=== PATIENT | male | born 1960 | race Caucasian/White ===

== ENCOUNTER 2018-12-20 15:37 | Observation (INO) | payer BC ==
[2018-12-19 11:33] VITALS: BMI 33.4
[~2018-12-20 15:37] MED LIST: Lidocaine 1% PF 5 ML VIAL ONE; PROPOFOL 200 MG/20 ML VIAL ONE
[2018-12-20] MEDS ORDERED: CEFAZOLIN 2 GM/50 ML BAG ONE (16:10)
[2018-12-20] MEDS ORDERED: Midazolam HCl 2 mg/2 ml Vial ONE (16:55)
[2018-12-20] MEDS ORDERED: Fentanyl 100 MCG/2 ML VIAL ONE ×3 (16:56→23:54)
[2018-12-20 17:16] LABS: #Basophils 0.1 thou/uL (0.0-0.2); #Lymphocytes 1.9 thou/uL (1.20-3.40); #Monocytes 0.8 thou/uL (0.11-0.59); %Basophils 0.9 % (0.0-1.0); %Eosinophils 0.8 % (0.0-10.0); %Lymphocytes 32.8 % (21.0-51.0); %Monocytes 13.9 % (0.0-10.0); %Neutrophils 51.7 % (42.0-75.0); Hemoglobin 14.2 g/dL (14.0-18.0); Mean Corpuscular HGB CONC 34.7 g/dL (32.0-36.0); Mean Corpuscular Hemoglobin 32.8 pg (27.0-31.0); Mean Corpuscular Volume 94.5 fL (78.0-98.0); Mean Platelet Volume 7.8 fL (7.4-10.4); Platelet Count 247 thou/uL (130-400); RBC Distribution Width 11.3 % (11.5-14.5); Red Blood Cell (RBC) Count 4.33 mill/uL (4.70-6.10); White Blood Cell (WBC) Count 5.8 thou/uL (4.8-10.8)
[2018-12-20] MEDS ORDERED: Bupivacaine PF 0.5% 30 ML VIAL ONE ×2 (19:03→20:55)
[2018-12-20] MEDS ORDERED: Sodium Chloride 0.9% 10 ML ONE (19:03)
[2018-12-20] MEDS ORDERED: Bacitracin Zinc Ointment 30 gm TUBE ONE (19:03)
[2018-12-20] MEDS ORDERED: Ropivacaine 0.2% 550 ML 550 ML NERVE BLCK SCH (21:06)
[2018-12-20] MEDS ORDERED: Ondansetron PF 4 MG/2 ML Vial IVP PRN (21:06)
[2018-12-20] MEDS ORDERED: Promethazine HCl 25 MG/ML VIAL IM PRN ×2 (21:06→23:44)
[2018-12-20] MEDS ORDERED: Zolpidem Tartrate 5 MG TAB PO PRN (21:06)
[2018-12-20] MEDS ORDERED: Ondansetron HCl/PF 4 MG/2 ML Vial IVP PRN (23:44)
[2018-12-20] MEDS ORDERED: Promethazine HCl 25 MG/ML VIAL SLOW IVP PRN (23:44)
[2018-12-20] MEDS ORDERED: Communication Order-Pharmacy FS SCH (23:45)
[2018-12-20] MEDS ORDERED: Ketorolac Tromethamine 30 MG/ML VIAL ONE (23:50)
[2018-12-20] MEDS ORDERED: Acetaminophen 325 MG TAB PO PRN (23:56)
[2018-12-20] MEDS ORDERED: traMADol HCl 50 MG TAB PO PRN (23:56)
[2018-12-20] MEDS ORDERED: Morphine 4 MG/ML VIAL SLOW IVP PRN (23:56)
[2018-12-20] MEDS ORDERED: Ondansetron PF 4 MG/2 ML Vial IV PRN (23:56)
[2018-12-21] MEDS ORDERED: Meperidine HCl/PF 25 MG/ML VIAL IM PRN (00:04)
[2018-12-21] MEDS ORDERED: TETANUS AND DIPHTHERIA TOX/PF 0.5 ML DISP.SYRIN IM SCH (01:00)
[2018-12-21] MEDS: Ketorolac Tromethamine 30 MG/ML VIAL IVP SCH ×2 (01:16→05:24)
[2018-12-21] MEDS: HYDROcodone/Acetaminophen 5/325 mg Tablet PO PRN ×3 (01:23→10:36)
--- NOTE | 2018-12-21 08:46 | RAD ---
RIGHT HAND 2 VIEWS: Date: 12/20/18 HISTORY: Intraoperative films. FINDINGS: This is a series of C-arm films which show operative changes at the metacarpophalangeal joint of the middle finger related to partial resection of metacarpal head. IMPRESSION: Postoperative changes of the hand. POS: CHRIS
[2018-12-21] MEDS ORDERED: Losartan 25 MG TAB PO SCH (09:00)
[2018-12-21] MEDS ORDERED: Ubidecarenone 50 MG CAP PO SCH (09:00)
[2018-12-21] MEDS ORDERED: Hydrochlorothiazide 25 MG TAB PO SCH (09:00)
[2018-12-21] MEDS ORDERED: Fish Oil 1,000 MG CAP PO SCH (09:00)
[2018-12-21] MEDS ORDERED: Multivit, Therapeutic 1 TAB PO SCH (09:00)
[2018-12-21] MEDS ORDERED: Nebivolol HCl 5 MG TAB PO SCH (09:00)
[2018-12-21] MEDS ORDERED: Aspirin 81 mg Enteric Coated Tablet PO SCH (09:00)
[2018-12-21] MEDS ORDERED: Vancomycin HCl 1 GM in Premix Bag 1 BAG IVPB SCH (10:00)
[2018-12-21 10:16] VITALS: BP 118/70; TEMP 98.8
--- NOTE | 2018-12-21 16:05 | DIS ---
DATE OF ADMISSION: 12/20/2018 DATE OF DISCHARGE: 12/21/2018 ADMISSION DIAGNOSIS: Pain after joint replacement, upper extremity. POSTOPERATIVE DIAGNOSIS: Pain after joint replacement, upper extremity. HOSPITAL COURSE: The patient was admitted after he had an indwelling block with postoperative pain and lives more than 30 minutes away, so he was admitted overnight. Approximately 12 hours after procedure, the pain began to subside, so he was prepared for discharge. Examination at the time of discharge showed normal color, refill, gross motion, and his splint dressing intact. Now, his indwelling block line is without abnormality and appears to be at least partially successful. DISCHARGE DIAGNOSIS: Pain after joint replacement, upper extremity. POSTOPERATIVE RECOMMENDATIONS: He will now be discharged on regular diet. He has been given [place] for pain when it occurs, Toradol for pain take as directed and then antibiotic Bactrim for 5-day course. He will follow up with us in 2 weeks for dressing change and early therapy. Suture removal will be between 3 and 4 weeks from the procedure. Job ID: [id number]
--- NOTE | 2018-12-21 16:37 | OP ---
DATE OF PROCEDURE: 12/20/2018 PREOPERATIVE DIAGNOSES: 1. Right severe osteoarthritis, metacarpophalangeal joint, middle finger. 2. 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 FINDINGS: Very large posterior osteophytes on both sides of the metacarpophalangeal joint and 85% loss of articular surface on the metacarpal head, approximately 65% loss of articular surface on the base of proximal phalanx. PROCEDURE PERFORMED: 1. Joint release, capsulotomy, right metacarpophalangeal joint with osteophyte excisions. 2. Right metacarpophalangeal joint [employer]umen FORMTEK #5 silastic metacarpophalangeal joint middle finger arthroplasty (metacarpophalangeal arthroplasty). ESTIMATED BLOOD LOSS: 10 mL. TOURNIQUET TIME: 50 minutes. FINDINGS: Severe osteoarthritis described above. INDICATIONS: Failed conservative treatment with severe amount of osteoarthritis and joint loss of motion. DESCRIPTION OF PROCEDURE: After successful general endotracheal anesthesia,limb was prepped and draped. The patient had a block, which was starting to take effect, so we gave him 20 mL of 0.5% Marcaine prior to initiating the incision. We exsanguinated the limb, inflated the tourniquet on the right upper extremity to 250 mmHg pressure. We made a zigzag incision where the incision did not cross the metacarpophalangeal joint dorsally, but on the radial side. We carried this through the skin and subcutaneous tissue. We released the retinaculum on the radial side in its midportion throughout its entire length to allow for us to retract the extensor mechanism. We then made a capsular release first. We it from both sides of the joint and then to allow motion as a partial capsulotomy and then removed the capsule in the midline to visualize the osteophytes. Here, we saw the 85% loss of articular surface on the metacarpal head and 65% loss on the base of proximal phalanx (inebriated bone). We then made an almost 7 mm thick cut parallel to the joint surface with a sagittal saw on the metacarpal head and then a 2 mm cut parallel to the joint surface on the base of proximal phalanx. The collaterals were now and had a Jignesh stitch with a 4-0 Prolene placed for later placement back into the metacarpal head shaft junction. We then made a posterior cut on the metacarpal head, removed all the osteophytes to create a semi box effect and then removed all the osteophytes on the palmar aspect of the proximal phalanx to increase flexion as well. I irrigated the area and begin successive reamers first with the starter broach on x-ray to be sure we were in the central portion of the interosseous canal in the frontal-sagittal plane. Once confirmed this, we then began progressive and sequential broaching with the Tykli instruments. A 5 broach had excellent fit and we placed the 5 implant in. There was stability and we were able to get the long finger left within a mm of the opposite side. We then irrigated the area, found a 5 prosthesis put in appropriate position, checked stability and before doing the final prosthesis, we had placed drill holes in the radial ulnar aspect of the metacarpal box cut and then once the prosthesis was in, we tied this in 30 degrees of flexion for stability and it was very stable. We then closed the extensor mechanism with a small amount of capsular remnant underneath with interrupted on the ends and running in the middle 4-0 Prolene. There was excellent stability to 90 degrees of flexion passively of the extensor mechanism times when checked today. The tourniquet had been deflated. Hemostasis was obtained. We then closed the skin with some interrupted 4-0 Monocryl and 4-0 nylon interrupted mattress pattern for epidermal closure. The patient left the operating room without evidence of anesthetic complication. Job ID: [id number]
[2018-12-21] MEDS ORDERED: Fenofibrate Nanocrystallized 145 MG TAB PO SCH (21:00)
[2018-12-21] MEDS ORDERED: Pravastatin Sodium 20 MG TAB PO SCH (21:00)
[2018-12-22] MEDS ORDERED: Ketorolac Tromethamine 30 MG/ML VIAL IVP PRN (06:00)
== END 2018-12-21 11:02 | disposition home or self-care (01) ==
LOC: SDC 15:37 → SURG A 23:56
PROVIDERS: ADMIT Orthopaedic Surgery Hand Surgery; ATTEND Orthopaedic Surgery Hand Surgery
PROC: 0RNU0ZZ Release Right Metacarpophalangeal Joint, Open Approach (ICD-10-PCS; principal; 2018-12-20)
PROC: 0RRU0JZ Replacement of Right Metacarpophalangeal Joint with Synthetic Substitute, Open Approach (ICD-10-PCS; 2018-12-20)
DX: M19.041 Primary osteoarthritis, right hand (principal); M24.541 Contracture, right hand; I10 Essential (primary) hypertension; E78.5 Hyperlipidemia, unspecified; Z96.641 Presence of right artificial hip joint; Z90.49 Acquired absence of other specified parts of digestive tract; Z90.89 Acquired absence of other organs; Z79.2 Long term (current) use of antibiotics; Z79.899 Other long term (current) drug therapy; Z98.890 Other specified postprocedural states
CPT/HCPCS: 36415; 76000; 85025; 96365; 96375; A4306; C1776; G0378; J1885; J2250; J2795; J3010; J3370; J3490; S0020

== ENCOUNTER 2019-04-21 02:09 | Outpatient (CLI) | payer BC ==
[2019-04-21 15:38] LABS: #Basophils 0.1 thou/uL (0.0-0.2); #Lymphocytes 1.6 thou/uL (1.20-3.40); %Basophils 0.9 % (0.0-1.0); %Eosinophils 0.6 % (0.0-10.0); %Monocytes 12.8 % (0.0-10.0); %Neutrophils 64.8 % (42.0-75.0); Hemoglobin 14.4 g/dL (14.0-18.0); Mean Corpuscular HGB CONC 35.5 g/dL (32.0-36.0); Mean Corpuscular Hemoglobin 34.1 pg (27.0-31.0); Mean Corpuscular Volume 95.9 fL (78.0-98.0); Mean Platelet Volume 8.1 fL (7.4-10.4); Platelet Count 217 thou/uL (130-400); RBC Distribution Width 11.4 % (11.5-14.5); Red Blood Cell (RBC) Count 4.24 mill/uL (4.70-6.10); White Blood Cell (WBC) Count 7.7 thou/uL (4.8-10.8)
--- NOTE | 2019-04-21 17:39 | EKG ---
Test Reason : Blood Pressure : / mmHG Vent. Rate : 083 BPM Atrial Rate : 083 BPM P-R Int : 152 ms QRS Dur : 084 ms QT Int : 370 ms P-R-T Axes : 055 051 -11 degrees QTc Int : 434 ms Normal sinus rhythm Normal ECG When compared with ECG of 22-JUN-2015 09:38, No significant change was found Confirmed by SHANIKA GUTIÉRREZ, DR. Beckett ([id number]) on 04/21/2019 5:38:48 PM Referred By: BIJU Confirmed By:DR. Sophy VOSS MD
== END 2019-04-21 02:10 | disposition home or self-care (01) ==
LOC: LABBT 02:09
PROVIDERS: ATTEND Orthopaedic Surgery Hand Surgery
DX: Z01.818 Encounter for other preprocedural examination (principal); M19.041 Primary osteoarthritis, right hand
CPT/HCPCS: 85025; 93005; 93010

== ENCOUNTER 2019-04-22 11:04 | Day surgery (SDC) | payer BC ==
[2019-04-21 14:20] VITALS: BMI 33.9
[2019-04-22] MEDS ORDERED: Betamet Acet/Betamet Na Ph 30 MG/5 ML VIAL ONE (13:05)
[2019-04-22] MEDS ORDERED: Bupivacaine PF 0.5% 30 ML VIAL ONE (13:05)
[2019-04-22] MEDS ORDERED: Midazolam HCl 2 mg/2 ml Vial ONE (13:14)
[2019-04-22] MEDS ORDERED: Fentanyl 100 MCG/2 ML VIAL ONE ×2 (13:14→16:03)
[2019-04-22] MEDS ORDERED: Ketorolac Tromethamine 30 MG/ML VIAL ONE (16:03)
--- NOTE | 2019-04-23 14:24 | OP ---
DATE OF PROCEDURE: 04/22/2019 PREOPERATIVE DIAGNOSES: 1. Right ring finger metacarpophalangeal joint contracture after previous arthroplasty with silastic implant at the right middle finger. 2. Giant cell tumor, right middle finger extensor tendon. PROCEDURES PERFORMED: 1. At the right middle finger;. a. Dorsal metacarpophalangeal joint capsulotomy with capsulectomy. b. Extensor tenolysis. c. Radial intrinsic release. d. Ulnar intrinsic release. 2. At the right ring finger, giant cell tumor 6 mm from tendon sheath excision with tenosynovectomy. 3. C-arm was used. 4. We applied a short-arm splint application. INDICATIONS FOR PROCEDURE: The patient had a joint arthroplasty 90 days ago and has plateaued with only 35 degrees to 40 degrees active motion in terms of flexion of MP joint. He failed 3-month conservative therapy, and thus operative intervention was indicated. During this time, after swelling and index surgery, he noticed thickening over the adjacent ring finger, mid metacarpal region, what appears to be thickening over the extensor tendon. For this reason, operative intervention was indicated. ESTIMATED BLOOD LOSS: 20 mL. TOURNIQUET TIME: 43 minutes. DESCRIPTION OF PROCEDURE: After successful general LMA technique, the limb was prepped and draped. The patient had a block already, but augmented this with 20 mL of 0.5% Marcaine tino-incisional. Next, the limb exsanguinated, tourniquet inflated to 250 mmHg pressure. We made a zigzag incision over the ring finger, the mass approximately 15 mm long, slightly ulnar, from the impending middle finger surgery. We carried through skin and subcutaneous tissue, found a thickening consistent with a giant cell reactive tumor over the extensor tendon just proximal to the juncturae tendineae. Once we did this, the patient clearly had no evidence of underlying bony mass, and the specimen was sent to the lab. We with a [place] blade. We then turned our attention to the previous incision over the middle finger metacarpophalangeal joint extending to 5 mm distal and proximal, carried through skin and subcutaneous tissue, immediately saw, even with the patient asleep, there was no ability to flex the finger beyond 45 degrees. For this reason, we first undermined the scar underneath the proximal aspect of the sagittal bands, then released approximately 50% ulnar sagittal band to further visualize the joint, lifted up the extensor mechanism, and noticed that the joint capsule was 3 to 3.5 mm thick where capsule had formed. We then undermined beginning on the ulnar aspect of the metacarpal head until we could visualize the online prosthesis. the capsule from the prosthesis without cutting the prosthesis, lifted up the tendon, so we could get to the radial side of the joint. We then noticed the intrinsics were tight and I performed the intrinsic release using a classic 1 cm long V-shaped excision. Through the window intrinsic, released the joint capsule on the radial side. At this point, we then flexed the joint and could achieve 95-100 degrees motion with not much spring back. We then repaired with a 4-0 Prolene, sagittal fibers on the ulnar side, still had 95-100 degrees of flexion passively. Released the tourniquet, obtained hemostasis. Hemostasis was excellent. We then closed the incision with interrupted 4-0 nylon in a simple pattern, placed him in a bulky dressing with the MP joints all at 90 degrees including the ring finger and middle finger. He left the operating room and C-arm showed no evidence of clinical instability in any of the joint. Job ID: [id number]
== END 2019-04-22 17:41 | disposition home or self-care (01) ==
LOC: SDC 11:04
PROVIDERS: ATTEND Orthopaedic Surgery Hand Surgery
PROC: 0JBJ0ZZ Excision of Right Hand Subcutaneous Tissue and Fascia, Open Approach (ICD-10-PCS; principal; 2019-04-22)
PROC: 0RNU0ZZ Release Right Metacarpophalangeal Joint, Open Approach (ICD-10-PCS; principal; 2019-04-22)
PROC: 0LN70ZZ Release Right Hand Tendon, Open Approach (ICD-10-PCS; principal; 2019-04-22)
DX: M24.541 Contracture, right hand (principal); M79.89 Other specified soft tissue disorders; M19.041 Primary osteoarthritis, right hand; E78.5 Hyperlipidemia, unspecified; I10 Essential (primary) hypertension; Z79.899 Other long term (current) drug therapy
CPT/HCPCS: 88304; 88305; J0690; J0702; J1885; J2250; J3010; S0020

== ENCOUNTER 2020-01-20 09:43 | Outpatient (CLI) | payer BC ==
--- NOTE | 2020-01-20 10:24 | RAD ---
LUMBAR SPINE 4 VIEWS: Date: 01/20/2020 COMPARISON: None. HISTORY: Spondylolysis. FINDINGS: Frontal imaging demonstrates cholecystectomy clips and a partially visualized right hip arthroplasty. Six non-rib bearing lumbar-type vertebral bodies are noted. Lumbar pedicles appear intact on frontal imaging. The lateral neutral exam demonstrates no anterolisthesis or retrolisthesis. There is multilevel promi nent lower lumbar spine facet hypertrophy and there is significant anterior osteophyte formation at a ll levels within the lumbar spine. The flexion and extension imaging demonstrates no anterolisthesis or retrolisthesis. IMPRESSION: Multilevel lumbar spine degenerative change as above. POS: ANT
== END 2020-01-20 09:44 | disposition home or self-care (01) ==
LOC: RAD 09:43
PROVIDERS: ATTEND Specialist
DX: M43.07 Spondylolysis, lumbosacral region (principal); M47.816 Spondylosis without myelopathy or radiculopathy, lumbar region
CPT/HCPCS: 72120

== ENCOUNTER 2021-03-28 09:55 | Outpatient (CLI) | payer BC ==
[2021-03-28 18:29] LABS: SARS-CoV-2 PCR by NAA Not Detected (NotDetected)
== END 2021-03-28 09:56 | disposition home or self-care (01) ==
LOC: LABBT 09:55
PROVIDERS: ATTEND Specialist
DX: Z01.812 Encounter for preprocedural laboratory examination (principal); Z20.822 Contact with and (suspected) exposure to COVID-19
CPT/HCPCS: 87635; U0003; U0005

== ENCOUNTER 2021-03-31 05:37 | Day surgery (SDC) | payer BC ==
[2021-03-29 16:02] VITALS: BMI 33.4
[2021-03-31] MEDS ORDERED: CEFAZOLIN 1 GM VIAL ONE (06:30)
[2021-03-31] MEDS ORDERED: Sodium Chloride 0.9% 100 ML ONE (06:30)
[2021-03-31] MEDS ORDERED: Bupivacaine PF 0.5% 30 ML VIAL ONE ×2 (07:23→08:30)
[2021-03-31] MEDS ORDERED: EPINEPHrine 1 MG/ML AMP ONE ×2 (07:23→08:30)
[2021-03-31] MEDS ORDERED: Propofol 500 MG/50 ML VIAL ONE (07:45)
[2021-03-31] MEDS ORDERED: Fentanyl 100 MCG/2 ML VIAL ONE (07:45)
[2021-03-31] MEDS ORDERED: Midazolam HCl 5 mg/5 ml Vial ONE (07:45)
[2021-03-31] MEDS ORDERED: Lidocaine 1% PF 5 ML VIAL ONE (08:13)
[2021-03-31] MEDS ORDERED: Ondansetron PF 4 MG/2 ML Vial ONE (08:13)
[2021-03-31] MEDS ORDERED: PROPOFOL 200 MG/20 ML VIAL ONE (08:13)
[2021-03-31] MEDS ORDERED: HYDROcodone/Acetaminophen 5/325 mg Tablet ONE (10:13)
== END 2021-03-31 11:00 | disposition home or self-care (01) ==
LOC: SDC 05:37
PROVIDERS: ATTEND Specialist
PROC: 00HU3MZ Insertion of Neurostimulator Lead into Spinal Canal, Percutaneous Approach (ICD-10-PCS; principal; 2021-03-31)
PROC: 0JH70BZ Insertion of Single Array Stimulator Generator into Back Subcutaneous Tissue and Fascia, Open Approach (ICD-10-PCS; principal; 2021-03-31)
DX: G89.4 Chronic pain syndrome (principal); M51.16 Intervertebral disc disorders with radiculopathy, lumbar region; N40.0 Benign prostatic hyperplasia without lower urinary tract symptoms; Z79.899 Other long term (current) drug therapy; Z87.891 Personal history of nicotine dependence
CPT/HCPCS: 72020; 76000; C1778; C1787; J0171; J0690; J2250; J2405; J2704; J3010; J3490; L8687; L8689; S0020